=== PATIENT | male | born 1970 | race Caucasian/White ===

== ENCOUNTER 2018-03-10 10:24 | Emergency (ER) | payer BC ==
[~2018-03-10] VITALS: Ht 172.7 cm; Wt 85.0 kg
[2018-03-10 10:59] LABS: HEMATOCRIT 40.7 % (39.0-50.0); HEMOGLOBIN 14.4 g/dl (14.0-18.0); IMMATURE GRANULOCYTES 0.2 % (0.0-5.0); MEAN CELL VOLUME 90.6 fL CALC (80.0-100.0); MEAN CORPUSCULAR HGB 32.1 pG CALC (26.0-32.0); MEAN CORPUSCULAR HGB CONC 35.4 g/L CALC (32.0-36.0); NEUT# 3.6 thou/uL (1.82-7.42); RED BLOOD COUNT 4.49 mill/uL (4.70-6.10); RED CELL DISTRI WIDTH 11.9 % (11.5-15.5)
[2018-03-10 11:14] LABS: ALBUMIN 3.8 g/dL (3.2-5.0); ALKALINE PHOSPHATASE 152 u/l (38-126); ANION GAP 12 (6-22 (CALC)); BILIRUBIN, TOTAL 0.8 mg/dL (0.0-1.4); BUN 11 mg/dL (9-20); BUN/CREATININE RATIO 20 (12-20 (CALC)); CARBON DIOXIDE 30 mmol/l (22-30); CHLORIDE 98 mmol/l (95-108); CREATININE 0.6 mg/dL (0.7-1.3); GFR > 60 ML/MIN (>=60 (CALC)); GFR FOR AFR.AMER. > 60 ML/MIN (>=60 (CALC)); POTASSIUM 4.4 mmol/l (3.5-5.1); SGOT/AST 96 u/l (17-59); SODIUM 135 mmol/l (137-146); TOTAL PROTEIN 7.6 g/dL (6.3-8.2)
[2018-03-10 11:24] LABS: GFR > 60 ML/MIN (>=60 (CALC)); GFR FOR AFR.AMER. > 60 ML/MIN (>=60 (CALC))
[2018-03-10] MEDS ORDERED: ANTIVERT PO (11:45)
[2018-03-10] MEDS ORDERED: CLEOCIN300 MG PO (11:45)
[2018-03-10] MEDS ORDERED: METFORMIN500 M1 PO (11:45)
[2018-03-10 12:19] VITALS: BP 130/77
== END 2018-03-10 12:34 | disposition home or self-care (01) | DRG 603 ==
LOC: ED 10:24
PROVIDERS: Emergency Medicine
DX: L02.421 Furuncle of right axilla (principal); L02.521 Furuncle right hand; E11.65 Type 2 diabetes mellitus with hyperglycemia; R42 Dizziness and giddiness
CPT/HCPCS: Q9967

== ENCOUNTER 2020-10-20 07:30 | Emergency (ER) | payer BC ==
[~2020-10-20] VITALS: Ht 172.7 cm; Wt 93.4 kg
[~2020-10-20 07:30] MED LIST: ANTIVERT PO; CLEOCIN300 MG PO; METFORMIN500 M1 PO
[2020-10-20] MEDS ORDERED: METFORMIN500 M2 PO (08:15)
[2020-10-20 08:17] LABS: URINE BILIRUBIN - DIPSTICK NEGATIVE (NEGATIVE); URINE BLOOD DIPSTICK NEGATIVE (NEGATIVE); URINE COLOR YELLOW; URINE GLUCOSE - DIPSTICK >=1000 mg/dL (NEGATIVE); URINE KETONE NEGATIVE (NEGATIVE); URINE LEUK ESTERASE NEGATIVE (NEGATIVE); URINE PROTEIN - DIPSTICK NEGATIVE (NEG-TRACE); URINE SPECIFIC GRAVITY >=1.030; URINE UROBILINOGEN - DIPSTICK 0.2 E.U./dL (0.2)
[2020-10-20 08:19] LABS: URINE NITRITE - DIPSTICK NEGATIVE (Negative)
[2020-10-20 09:00] VITALS: BP 118/68
== END 2020-10-20 09:10 | disposition home or self-care (01) | DRG 951 ==
LOC: ED 07:30
PROVIDERS: Emergency Medicine
DX: Z20.2 Contact with and (suspected) exposure to infections with a predominantly sexual mode of transmission (principal); E11.9 Type 2 diabetes mellitus without complications; F17.210 Nicotine dependence, cigarettes, uncomplicated; Z79.84 Long term (current) use of oral hypoglycemic drugs

== ENCOUNTER 2021-02-22 07:32 | Emergency (ER) | payer BC ==
[~2021-02-22] VITALS: Ht 172.7 cm; Wt 95.0 kg
[~2021-02-22 07:32] MED LIST changes: +METFORMIN500 M2 PO
[2021-02-22] MEDS ORDERED: MOTRIN800 MG PO (08:30)
[2021-02-22] MEDS ORDERED: CLINDAMYCIN300 M1 PO (08:30)
[2021-02-22 09:00] VITALS: BP 135/77
== END 2021-02-22 09:08 | disposition home or self-care (01) | DRG 159 ==
LOC: ED 07:32
DX: K08.89 Other specified disorders of teeth and supporting structures (principal); E11.9 Type 2 diabetes mellitus without complications; F17.210 Nicotine dependence, cigarettes, uncomplicated; Z79.84 Long term (current) use of oral hypoglycemic drugs

== ENCOUNTER 2021-04-13 21:07 | Emergency (ER) | payer BC ==
[~2021-04-13] VITALS: Ht 172.7 cm; Wt 81.0 kg
[~2021-04-13 21:07] MED LIST changes: +CLINDAMYCIN300 M1 PO; +MOTRIN800 MG PO
[2021-04-13 23:17] LABS: IMMATURE GRANULOCYTES 0.7 % (0.0-5.0); MEAN CORPUSCULAR HGB 25.6 pG CALC (26.0-32.0); MEAN CORPUSCULAR HGB CONC 30.8 g/dL CAL (32.0-36.0); NEUT# 3.58 thou/uL (1.82-7.42); RED BLOOD COUNT 2.23 mill/uL (4.70-6.10); RED CELL DISTRI WIDTH 19.5 % (11.5-15.5)
[2021-04-13 23:24] LABS: HEMATOCRIT 18.5 % (39.0-50.0); HEMOGLOBIN 5.7 g/dl (14.0-18.0)
[2021-04-13 23:33] LABS: ALBUMIN 3.3 g/dL (3.2-5.0); ALKALINE PHOSPHATASE 104 u/l (38-126); BUN 11 mg/dL (9-20); BUN/CREATININE RATIO 18 (12-20 (CALC)); CHLORIDE 102 mmol/l (95-108); CREATININE 0.6 mg/dL (0.7-1.3); GFR > 60 ML/MIN (>=60 (CALC)); GFR FOR AFR.AMER. > 60 ML/MIN (>=60 (CALC)); POTASSIUM 3.8 mmol/l (3.5-5.1); SGOT/AST 98 u/l (17-59); SODIUM 130 mmol/l (137-146); TOTAL PROTEIN 6.6 g/dL (6.3-8.2)
[2021-04-13 23:44] LABS: ANION GAP 9 (6-22 (CALC)); BILIRUBIN, TOTAL 0.4 mg/dL (0.0-1.4); CARBON DIOXIDE 23 mmol/l (22-30)
[2021-04-13 23:45] LABS: MYOGLOBIN 17 ng/mL (0 - 121)
[2021-04-14 00:37] LABS: INTERNATIONAL NORMALIZED RATIO 0.9 RATIO (0.7-1.3); PROTHROMBIN TIME 9.8 SECONDS (9.0-12.5)
[2021-04-14 01:23] LABS: URINE BILIRUBIN - DIPSTICK NEGATIVE (NEGATIVE); URINE BLOOD DIPSTICK NEGATIVE (NEGATIVE); URINE COLOR YELLOW; URINE GLUCOSE - DIPSTICK >=1000 mg/dL (NEGATIVE); URINE KETONE NEGATIVE (NEGATIVE); URINE LEUK ESTERASE NEGATIVE (NEGATIVE); URINE PROTEIN - DIPSTICK NEGATIVE (NEG-TRACE); URINE SPECIFIC GRAVITY 1.025
[2021-04-14 01:31] LABS: URINE NITRITE - DIPSTICK NEGATIVE (Negative)
[2021-04-14 01:54] VITALS: BP 97/66
[2021-04-14 02:02] VITALS: BP 97/66
== END 2021-04-14 02:02 | disposition short-term general hospital (02) | DRG 379 ==
LOC: ED 21:07
PROVIDERS: Emergency Medicine
PROC: 30233N1 Transfusion of Nonautologous Red Blood Cells into Peripheral Vein, Percutaneous Approach (ICD-10-PCS; principal; 2021-04-14)
DX: K92.2 Gastrointestinal hemorrhage, unspecified (principal); E11.9 Type 2 diabetes mellitus without complications; E78.00 Pure hypercholesterolemia, unspecified; F17.200 Nicotine dependence, unspecified, uncomplicated; T38.3X6A Underdosing of insulin and oral hypoglycemic [antidiabetic] drugs, initial encounter; Z91.128 Patient's intentional underdosing of medication regimen for other reason; Z20.822 Contact with and (suspected) exposure to COVID-19
CPT/HCPCS: P9016; S0164